=== PATIENT | female | born 2000 | race Caucasian/White ===

== ENCOUNTER 2022-08-22 14:59 | Emergency (ER) | payer OTHER ==
[2022-08-22 15:10] VITALS: BP 125/80
--- NOTE | 2022-08-22 15:28 | ED Physician Documentation ---
PD HPI HEENT - Stated complaint Stated Complaint: LT EAR DRAINAGE/PX - Chief complaint Chief Complaint: Heent - History obtained from History obtained from: Patient - Additional information Additional information: Has had about 2 days of severe left ear pain now with some drainage. Is associated with sore throat and hearing loss. No fevers. PD PAST MEDICAL HISTORY - Present Medications Home Medications: Ambulatory Orders Medication Instructions Recorded Confirmed Amox/Clav 875/125 [Augmentin] 1 each PO Q12H #20 tablet 08/22/22 Ofloxacin [Ofloxacin Otic drops] 5 drops OT BID 10 Days #5 ml 08/22/22 - Allergies Allergies/Adverse Reactions: Allergies Allergy/AdvReac Type Severity Reaction Status Date / Time No Known Drug Allergies Allergy Verified 08/22/22 15:10 PD ED PE NORMAL - Vitals Vital signs reviewed: Yes - General General: Alert and oriented X 3, No acute distress - HEENT HEENT: Other (Left otitis media with perforation) - Neuro Neuro: Alert and oriented X 3, Normal speech Results - Vitals Vitals: Vital Signs - 24 hr 08/22/22 15:08 Temperature 36.6 C Heart Rate 76 Respiratory 16 Rate Blood Pressure 125/80 O2 Saturation 100 Oxygen O2 Source Room air Departure - Departure Disposition: 01 Home, Self Care Clinical Impression: Acute otitis media of left ear with perforation Condition: Good Record reviewed to determine appropriate education?: Yes Instructions: ED Otitis Media Acute Adult Prescriptions: Amox/Clav 875/125 [Augmentin] 1 each PO Q12H #20 tablet Ofloxacin [Ofloxacin Otic drops] 5 drops OT BID 10 Days #5 ml Comments: Recheck with your doctor in 1 week. Return for new or worsening symptoms.
== END 2022-08-22 15:30 | disposition home or self-care (01) ==
LOC: ED 14:59
DX: H66.92 Otitis media, unspecified, left ear (principal); H72.92 Unspecified perforation of tympanic membrane, left ear
CPT/HCPCS: 99282; 99283

== ENCOUNTER 2022-11-28 14:38 | Emergency (ER) | payer OTHER ==
[2022-11-28 14:50] VITALS: BP 130/80
--- NOTE | 2022-11-28 15:52 | ED Physician Documentation ---
History of Present Illness - Stated complaint Stated Complaint: LT FING LAC - Chief complaint Chief Complaint: Laceration - Additonal information Additional information: 22-year-old female here with a left finger laceration sustained when cutting bread while at work. [id number]. Tetanus is up-to-date. Review of Systems Skin: reports: Laceration (s) PD PAST MEDICAL HISTORY - Past Medical History Past Medical History: No - Past Surgical History Past Surgical History: No - Present Medications Home Medications: Ambulatory Orders Medication Instructions Recorded Confirmed Amox/Clav 875/125 [Augmentin] 1 each PO Q12H #20 tablet 08/22/22 Ofloxacin [Ofloxacin Otic drops] 5 drops OT BID 10 Days #5 ml 08/22/22 - Allergies Allergies/Adverse Reactions: Allergies Allergy/AdvReac Type Severity Reaction Status Date / Time No Known Drug Allergies Allergy Verified 11/28/22 14:41 - Social History Does the pt smoke?: No Smoking Status: Never smoker Does the pt drink ETOH?: No Does the pt have substance abuse?: No - Immunizations Immunizations are current?: Yes PD ED PE EXPANDED - Extremities Extremities: Left finger(s) (Left index finger partial angular distal tip amputation through the nail resulting in skin flap that is adherent at the distal tip. Normal flexion extension at DIP joint) Results - Vitals Vitals: Vital Signs - 24 hr 11/28/22 14:41 Temperature 36.5 C Heart Rate 88 Respiratory 18 Rate Blood Pressure 130/80 O2 Saturation 97 Oxygen O2 Source Room air Procedures - Laceration (location) left index finger Length in cm: 1.5 Wound type: Linear, Into muscle, Clean, Other (Angular partial distal tip amputation through the nailbed left index finger) Anesthesia: Lidocaine 1% Wound preparation: Chlorhexadine, Irrigated copiously NS Skin layer closure: Interrupted, Sutures - enter # (4) Other: Patient tolerated well, Dressing applied, Tetanus UTD, Other (Skin flap was tacked back onto the fingertip to act as a biologic dressing. I discussed with patient that I felt the flap however would likely not survive.) PD Medical Decision Making - ED course Complexity details: considered differential, d/w patient ED course: 19-year-old female with up-to-date tetanus presents for left index finger laceration sustained at work when cutting bread. This was a partial angular distal tip amputation that extended through the nail. The flap was tacked back onto the finger to act as a biologic dressing and to help with pain control. I discussed with patient likely the flap would not survive. We will defer antibiotics at this juncture. Usual routine wound care and emergent return precautions discussed [id number] completed at the bedside Departure - Departure Disposition: 01 Home, Self Care Clinical Impression: Laceration of index finger Qualifiers: Encounter type: initial encounter Damage to nail status: with damage Foreign body presence: without foreign body Laterality: left Qualified Code(s): S61.311A - Laceration without foreign body of left index finger with damage to nail, initial encounter Condition: Stable Record reviewed to determine appropriate education?: Yes Comments: As discussed at the bedside you have and angular partial distal tip finger amputation. This flap of skin may not survive however we tacked it back onto the finger to help improve pain and it will act as a biologic dressing while the wound heals underneath. The 4 sutures should be removed in about 7 to 10 days. If the flap dies it will simply need to be trimmed away. In 24 hours you may remove the dressing wash gently with warm soap and water, apply any antibiotic ointment and a simple bandage. Your tetanus is up-to-date. Please attempt to keep your wound clean and dry. Do not submerge it in dirty dishwater or bath water. Return to the emergency department if you have any concerns of infection such as redness, fevers milky drainage increased pain.
[2022-11-28] MEDS ORDERED: BACITRACIN ZINC OINT 1 PACKET TOP STA (15:53)
== END 2022-11-28 16:03 | disposition home or self-care (01) ==
LOC: ED 14:38
DX: S61.311A Laceration without foreign body of left index finger with damage to nail, initial encounter (principal); W26.0XXA Contact with knife, initial encounter; Y99.0 Civilian activity done for income or pay
CPT/HCPCS: 1040M; 12001; 99281; A9270

== ENCOUNTER 2022-12-15 14:19 | Outpatient (CLI) | payer OTHER ==
--- NOTE | 2022-12-15 18:07 | XRAY Report ---
PROCEDURE: Foot 3 View RT INDICATIONS: OTHER SPRAIN OF RIGHT FOOT, INITIAL ENCOUNTER TECHNIQUE: 3 views of the foot were acquired. COMPARISON: None. FINDINGS: Bones: No fractures or dislocations. No suspicious bony lesions. Soft tissues: No suspicious soft tissue calcifications . IMPRESSION: No acute bony abnormality. If pain persists with conservative management, consider repeat radiographs in 10-14 days or cross-sectional imaging. Reviewed by: Otf Jiménez MD on 12/15/2022 6:05 PM PDT Approved by: Otf Jiménez MD on 12/15/2022 6:05 PM PDT Station ID: [id number]
== END 2022-12-15 14:20 | disposition home or self-care (01) ==
LOC: DI 14:19
PROVIDERS: ATTEND Emergency Medicine
DX: S93.691A Other sprain of right foot, initial encounter (principal)

== ENCOUNTER 2023-07-12 14:50 | Emergency (ER) | payer OTHER ==
[2023-07-12 15:34] VITALS: BP 124/68; O2SAT 100
--- NOTE | 2023-07-12 16:12 | XRAY Report ---
PROCEDURE: Ankle 3+V LT INDICATIONS: fall, notable swelling to ankle TECHNIQUE: 3 views of the ankle were acquired. COMPARISON: None. FINDINGS: Bones: No fractures or dislocations. Ankle mortise is normally aligned. No suspicious bony lesions . Soft tissues: No tibiotalar joint effusion. Achilles tendon appears normal. Soft tissue swelling i s noted and ligamentous injury cannot be excluded. IMPRESSION: No fracture. No acute osseous lesion. If symptoms and/or clinical concern for pathology persists, fur ther assessment with repeat plain film radiographs (7-10 days) or advanced imaging (CT, MR, bone scan ) should be considered. Reviewed by: Monie No MD, PhD on 07/12/2023 4:11 PM PDT Approved by: Monie No MD, PhD on 07/12/2023 4:11 PM PDT Station ID: [id number]
--- NOTE | 2023-07-12 17:47 | ED Physician Documentation ---
PD HPI LOWER EXT INJURY - Stated complaint Stated Complaint: LT ANKLE INJ - Chief complaint Chief Complaint: Ext Problem - History obtained from History obtained from: Patient - Additional information Additional information: Patient is a 23-year-old female presenting for evaluation of left ankle pain. Patient states that she tripped over the last step coming down her stairs because she was holding clothes. She did not hit her head or have LOC. She reports pain only to the left ankle. She denies any prior injuries. She has not taken anything for pain. Review of Systems Cardiac: denies: Chest pain / pressure Respiratory: denies: Dyspnea GI: denies: Abdominal Pain Musculoskeletal: reports: Extremity pain PD PAST MEDICAL HISTORY - Past Medical History Past Medical History: No - Past Surgical History Past Surgical History: No HEENT: Tonsil/Adenoidectomy - Present Medications Home Medications: Ambulatory Orders Medication Instructions Recorded Confirmed Amox/Clav 875/125 [Augmentin] 1 each PO Q12H #20 tablet 08/22/22 Ofloxacin [Ofloxacin Otic drops] 5 drops OT BID 10 Days #5 ml 08/22/22 - Allergies Allergies/Adverse Reactions: Allergies Allergy/AdvReac Type Severity Reaction Status Date / Time No Known Drug Allergies Allergy Verified 07/12/23 15:21 - Social History Does the pt smoke?: No Smoking Status: Never smoker Does the pt drink ETOH?: No Does the pt have substance abuse?: No - Immunizations Immunizations are current?: Yes PD ED PE NORMAL - General General: Alert and oriented X 3, No acute distress, Well developed/nourished - HEENT HEENT: Atraumatic - Cardiac Cardiac: Strong equal pulses - Derm Derm: Warm and dry - Extremities Extremities: Other (Swelling and tenderness to lateral malleolus of the left ankle, strong distal pulses, no tenderness over foot, no tenderness more proximally in extremity, compartments of extremity are soft, motor and sensation grossly intact, no open wounds) Results - Vitals Vitals: Vital Signs - 24 hr 07/12/23 15:17 Temperature 36.9 C Heart Rate 86 Respiratory 15 Rate Blood Pressure 124/68 O2 Saturation 100 Oxygen O2 Source Room air PD Medical Decision Making - ED course Complexity details: reviewed results, d/w patient ED course: Pt with L ankle pain after rolling it. Lateral swelling. Neurovascularly intact. XR neg for fracture/dislocation. Aircast applied and crutches given. pt counseled on continued supportive care as well as concerning symptoms to return for. Advised on need for follow up. Departure - Departure Disposition: 01 Home, Self Care Clinical Impression: Left ankle sprain Condition: Stable Instructions: ED Sprain Ankle Follow-Up: [facility] Ocampo [Provider Group] Comments: Your x-ray does not show a broken bone but you do have symptoms of an ankle sprain. We have given you an Aircast and crutches noted recommend continuing with an anti-inflammatory such as acetaminophen or ibuprofen, ice, elevation over the course of the next week. I would recommend follow-up with your primary care doctor. Please return to the ER with any worsening symptoms. Forms: PCP List, Activity restrictions Discharge Date/Time: 07/12/23 18:04
[2023-07-12] MEDS: ACETAMINOPHEN 325 MG TABLET PO STA (17:53)
== END 2023-07-12 18:04 | disposition home or self-care (01) ==
LOC: ED 14:50
DX: S93.402A Sprain of unspecified ligament of left ankle, initial encounter (principal); W18.40XA Slipping, tripping and stumbling without falling, unspecified, initial encounter; Y93.01 Activity, walking, marching and hiking
CPT/HCPCS: 73610; 99283; A9270